=== PATIENT | male | born 1985 | race Caucasian/White ===

== ENCOUNTER 2021-11-04 18:28 | Emergency (ER) | payer MEDICAID, SELFPAY ==
[2021-11-04 18:48] VITALS: BP 137/88; PULSE 105; RESP 18; TEMP 36.6; O2SAT 99
--- NOTE | 2021-11-04 20:30 | ED.DENTAL ---
HPI - Dental/Oral General Chief complaint: Dental/Oral Stated complaint: dental pain Time Seen by Provider: 11/04/21 20:07 Source: patient Mode of arrival: ambulatory Limitations: no limitations History of Present Illness HPI Narrative: 36-year-old male presents to the ED with a 2-week history of right upper quadrant dental pain as well as a 1 day history of right-sided facial swelling. Patient is a smoker and does not receive routine dental care. He states he recently acquired insurance and has an appointment set up next month to have multiple teeth extracted. He has been using [id number] analgesics with minimal relief. No history of fever, chills, trismus, or drooling. Related Data Allergies Allergy/AdvReac Type Severity Reaction Status Date / Time NSAIDS (Non-Steroidal Allergy Intermediate Rash Verified 04/08/18 10:59 Anti-Inflamma Review of Systems Review of Systems: + Dental pain, facial swelling Denies fever, chills, nausea, vomiting, dysphagia, or chest pain. All systems reviewed & are unremarkable except as noted in HPI and below Exam Narrative: GENERAL: Well-appearing, well-nourished, and in no acute distress. HEAD: Normocephalic, atraumatic. ENT: Severe significant dental decay with multiple teeth fractured at the level of the gingiva; diffuse gingival hypertrophy; tooth #8 is mildly tender to palpate. No periapical abscess visualized. Moderate edema to the right maxillary region of the face. No overlying erythema or warmth. No trismus. Uvula midline. mucus membranes moist. NECK: Supple. No adenopathy or masses. No carotid bruits or JVD CHEST: Clear to auscultation. No respiratory distress. No wheezes rales or rhonchi HEART: Regular rate and rhythm. No murmur heard. Normal peripheral pulses. EXTREMITIES: Normal range of motion. No edema. SKIN: Warm, dry, no rash. NEURO: No focal deficits. PSYCH: Normal mood and affect. Course Vital Signs Vital signs: Vital Signs Temperature 97.9 F 11/04/21 18:48 Pulse Rate 105 H 11/04/21 18:48 Respiratory Rate 18 11/04/21 18:48 Blood Pressure 137/88 11/04/21 18:48 Pulse Oximetry 99 11/04/21 18:48 Temperature 97.9 F 11/04/21 18:48 Pulse Rate 105 H 11/04/21 18:48 Respiratory Rate 18 11/04/21 18:48 Blood Pressure 137/88 11/04/21 18:48 Pulse Oximetry 99 11/04/21 18:48 Discharge Plan Discharge Clinical Impression: Dental decay, Toothache, Facial swelling Patient Disposition: Home, Self-Care Condition: Stable Instructions: Antibiotic Form, Dental Abscess (ED) Additional Instructions: Please follow-up with dentist for further evaluation Prescriptions: New chlorhexidine gluconate [Peridex] 0.12 % mouthwash 15 ml buccal BID Qty: 118 RF: 0 clindamycin HCl 300 mg capsule 300 mg PO Q6H Qty: 28 RF: 0 Follow-up/Referrals: PHYSICIAN,SUPERVISOR DEHYDROGENATION [Primary Care Provider] - Stand Alone Forms: Work/School Release IP Time of Disposition: 20:39
[2021-11-04] MEDS: CLINDAMYCIN HCL 150 MG CAP 300 MG PO (20:51)
== END 2021-11-04 20:54 | disposition home or self-care (01) ==
PROVIDERS: Emergency Provider Emergency Medicine
DX: K02.9 Dental caries, unspecified (principal); R22.0 Localized swelling, mass and lump, head; F17.200 Nicotine dependence, unspecified, uncomplicated
CPT/HCPCS: 99283; A9270

== ENCOUNTER 2025-05-17 10:59 | Emergency (ER) | payer OTHER, SELFPAY ==
--- NOTE | ~2025-05-17 | XR_ITS ---
EXAMINATION: XR finger 2nd RT min 2V DATE: 05/17/2025 11:17 INDICATION: Laceration to the right second digit TECHNIQUE: Dorsal palmar, lateral and 2 oblique views of the right second digit were obtained COMPARISON: None FINDINGS: Alignment is normal. No fracture. Joint spaces are normal. Periarticular soft tissue swelling at the second proximal interphalangeal joint. There is bandaging about the distal phalanx. No soft tissue ga s or radiopaque foreign bodies. IMPRESSION: 1. No osseous abnormality or radiopaque foreign bodies. Reviewed, dictated and finalized at location A.
[2025-05-17] MEDS: LIDOCAINE 1% LOCAL INJ 10 ML VIAL INFILTRATE (13:39)
--- NOTE | 2025-05-17 14:00 | ED.GENADULT ---
HPI - General Adult General Chief complaint: Wound/Laceration Stated complaint: finger lac Time Seen by Provider: 05/17/25 12:34 History of Present Illness HPI narrative: 39-year-old male presents to the emergency department for evaluation for laceration to his right 2nd finger at the distal interphalangeal joint. Patient reports he was cleaning a knife. Patient's tetanus was not up-to-date but patient declined a tetanus update. Related Data Allergies Allergy/AdvReac Type Severity Reaction Status Date / Time NSAIDS (Non-Steroidal Allergy Intermediate Rash Verified 05/17/25 11:00 Anti-Inflamma Review of Systems Review of Systems: All systems reviewed & are unremarkable except as noted in HPI and below Exam Narrative: APPEARANCE: Well appearing, no pain, no distress, well-nourished. HEAD: normocephalic, atraumatic. EYES: PERRLA/EOMI, conjunctivae clear. NOSE: Normal no drainage EARS:TMS clear with good light reflex. THROAT: Pharynx clear, no exudate. MUSCULOSKELETAL: Normal range of motion of the affected finger NEURO: Alert. Cranial nerves II through XII intact. Good gait. Good coordination SKIN: Laceration to distal enter PSYCHIATRIC: Normal affect/mood. Course Vital Signs Vital signs: Vital Signs Temperature 97.8 F 05/17/25 14:21 Pulse Rate 71 05/17/25 14:21 Respiratory Rate 16 05/17/25 14:21 Blood Pressure 142/87 H 05/17/25 14:21 Pulse Oximetry 100 05/17/25 14:21 Temperature 97.8 F 05/17/25 14:21 Pulse Rate 71 05/17/25 14:21 Respiratory Rate 16 05/17/25 14:21 Blood Pressure 142/87 H 05/17/25 14:21 Pulse Oximetry 100 05/17/25 14:21 Procedures Laceration Laceration 1: Date: 05/17/25 Time: 14:01 Site: upper extremity Side (If applicable): right Size (cm): 2 Description: linear Depth: simple, single layer Local Anesthetic: lidocaine 1% Amount of anesthesia used (mL): 2 Pre-repair: wound explored and irrigated ====== Skin Level ====== Skin layer closed with: prolene Size (cm): 4-0 Number of sutures: 2 Technique: simple, interrupted ====== Subcutaneous Layer ====== ====== Muscle Layer ====== ====== Tendon Layer ====== Medical Decision Making MDM Narrative Medical decision making narrative: Laceration was repaired as described. Patient declined his tetanus shot. No concern for intra-articular involvement or tendon or ligament injury. Patient was encouraged close follow-up with primary care physician. Patient was educated on wound care and when to have the sutures removed. Differential Diagnosis Differential Diagnosis: Tendon involvement, involvement, intra-articular involved Vital Signs Vital Signs: Vital Signs Temperature 97.8 F 05/17/25 14:21 Pulse Rate 71 05/17/25 14:21 Respiratory Rate 16 05/17/25 14:21 Blood Pressure 142/87 H 05/17/25 14:21 Pulse Oximetry 100 05/17/25 14:21 Temperature 97.8 F 05/17/25 14:21 Pulse Rate 71 05/17/25 14:21 Respiratory Rate 16 05/17/25 14:21 Blood Pressure 142/87 H 05/17/25 14:21 Pulse Oximetry 100 05/17/25 14:21 Imaging Data Radiologist's impression: Impressions Finger X-Ray 05/17/25 11:39 IMPRESSION: 1. No osseous abnormality or radiopaque foreign bodies. Discharge Plan Discharge Clinical Impression: Laceration Patient Disposition: Home Condition: Stable Instructions: Antibiotic Form, Laceration (ED) Additional Instructions: Sutures will need to be removed in 5-7 days. Wound care as directed. Have close follow-up with your primary care physician. Patient Language: Azeri Prescriptions: No Action chlorhexidine gluconate [Peridex] 0.12 % mouthwash 15 ml buccal BID Qty: 118 0RF clindamycin HCl 300 mg capsule 300 mg PO Q6H Qty: 28 0RF Follow-up/Referrals: PHYSICIAN,PATIENT PLACEMENT COORDINATOR [Primary Care Provider] -
[2025-05-17 14:21] VITALS: BP 142/87; PULSE 71; RESP 16; TEMP 36.6; O2SAT 100
== END 2025-05-17 14:22 | disposition home or self-care (01) ==
PROVIDERS: Emergency Provider Emergency Medicine
DX: S61.210A Laceration without foreign body of right index finger without damage to nail, initial encounter (principal); W26.0XXA Contact with knife, initial encounter
CPT/HCPCS: 12001; 73140; 90471; 99283; J2003